=== PATIENT | female | born 1940 | race Caucasian/White ===

== ENCOUNTER 2016-11-20 11:00 | Inpatient (IN) | payer MEDICARE ==
[~2016-11-20] VITALS: Ht 167.6 cm; Wt 108.6 kg
--- NOTE | ~2016-11-20 | OR ---
PATIENT'S NAME: [facility] AGE: 76 Y [address] ROOM: [place] [address] LOCATION: [facility] ADMIT DATE: 12/05/2016 OR/Procedure Report DISCHARGE DATE: FAMILY PHYSICIAN: MAU LUCERO MD ATTENDING PHYSICIAN: BEN CALLAHAN SURGEON: Ben Callahan MD VP & GENERAL COUNSEL: 1. JENNIFER Murphy. 2. Alireza Calloway CST/FOREST [employer] EQUIPMENT OPERATOR. DATE OF PROCEDURE: 12/05/2016 PRE-OP DIAGNOSIS: Primary osteoarthritis, right hip. POST-OP DIAGNOSIS: Primary osteoarthritis, right hip. OPERATION: Right total hip arthroplasty. ANESTHESIA: General endotracheal anesthesia plus subcutaneous and periarticular local anesthesia (ropivacaine with epinephrine). ESTIMATED BLOOD LOSS: Approximately 275 cubic centimeters. DRAIN: None. SPECIMEN: None. COMPLICATIONS: None. IMPLANTS: 1. Gary Trident Tritanium size 58 mm hemispherical uncemented acetabular shell with one dome hole cover and no screws. 2. Gary X3 neutral acetabular polyethylene liner with 36 mm inner diameter. 3. Gary Accolade II size 5 standard offset uncemented femoral component. 4. 36 mm diameter metallic femoral head with -5 mm neck length. INDICATION FOR SURGERY: The patient is a 76-year-old female who presents with advanced right hip primary osteoarthritis and associated severely compromised activities of daily living. The patient has decided to proceed with hip replacement after having been thoroughly counseled regarding the associated risks, benefits, and limitations. We have specifically reviewed the risks and implications of infection, deep venous thrombosis, pulmonary embolism, mortality, neurovascular complications, blood transfusion (and associated potential for disease transmission or transfusion reaction), stiffness, instability, leg length discrepancy, mechanical deterioration of the components (due to wear and to loosening), and the potential need for PATIENT'S NAME: [facility] AGE: 76 Y [address] ROOM: [address] [address] LOCATION: [facility] ADMIT DATE: 12/05/2016 OR/Procedure Report DISCHARGE DATE: FAMILY PHYSICIAN: MAU LUCERO MD ATTENDING PHYSICIAN: BEN CALLAHAN revision. DESCRIPTION OF PROCEDURE: The patient was positioned in a lateral decubitus position with the right side up after administration of anesthesia and prophylactic antibiotics. An axillary roll was placed and the non-operative leg was well padded. The pelvis was locked perpendicularly to the floor on a pegboard. The right hip and entire operative extremity were prepped and draped with vigilant sterile technique. The patient's name as well as the intended operative side and procedure were confirmed with a verbal time-out involving myself, the circulating nurse, the scrub nurse, and the anesthesiologist. The right hip was approached through a standard posterolateral incision. The fascia que and the gluteus lilliana fascia were sharply divided in line with the overlying skin incision. The sciatic nerve was identified and was vigilantly protected throughout the entire case. The short external rotators and posterior capsule were divided from their respective femoral insertions and tagged with four #1 Ethibond sutures for later repair. The hip was posteriorly dislocated with combined flexion, adduction, and internal rotation. The femoral neck osteotomy was performed with an oscillating saw. Inspection of the femoral head demonstrated global full- thickness loss of articular cartilage. There was severe erosion of the femoral head yielding a mushroom shape appearance of the femoral head. Circumferential acetabular exposure was obtained. Examination of the acetabulum demonstrated global full-thickness loss of articular cartilage. There was severe erosion of the superolateral aspect of the acetabulum with loss of approximately 1 to 2 cm of subchondral bone superolaterally. There was a moderate-sized medial acetabular osteophyte. There were no loose bodies. Remnants of the acetabular labrum were sharply thoroughly excised. The acetabulum was sequentially progressively reamed up to 57 mm with hemispherical power reamers. The final acetabular shell was impacted into position in 20 degrees of anteversion and 45 degrees of inclination. An excellent press-fit was obtained. No supplemental dome screw fixation was necessary. A neutral trial liner was inserted. Attention was next focused upon femoral preparation. The femoral canal initiator was utilized. No reaming was performed (except for with a canal finder). The patient was noted to be moderately severely osteopenic. The femoral canal was subsequently sequentially progressively broached up to a size 5. The size 5 broach obtained excellent axial and rotational stability. Trial reductions with the above specified construct yielded acceptable stability and acceptable reproduction of leg length and offset. All trial PATIENT'S NAME: [facility] AGE: 76 Y [address] ROOM: [id number] [place], [place] [address] LOCATION: [facility] ADMIT DATE: 12/05/2016 OR/Procedure Report DISCHARGE DATE: FAMILY PHYSICIAN: MAU LUCERO MD ATTENDING PHYSICIAN: BEN CALLAHAN components were removed. The final acetabular liner was inserted with excellent circumferential visualization of its locking mechanism to assure adequate deployment. The final femoral component was impacted into position. The femoral component achieved excellent axial and rotational stability. The trunnion of the femoral component was vigilantly protected prior to placement of the femoral head. The trunnion of the femoral component was thoroughly cleaned and dried prior to placement of the femoral head. The incision was thoroughly irrigated with bacteriostatic pulsatile saline lavage multiple times throughout the case. The entire joint space was thoroughly inspected and thoroughly irrigated to assure that there was no residual debris of any sort. A final reduction was then performed. After final reduction, the hip could be firmly externally rotated in full extension and zero degrees of abduction without anterior subluxation. In neutral rotation and zero degrees of abduction, the hip could be firmly flexed to 120 degrees without instability. At 90 degrees of flexion and zero degrees abduction, the hip could be internally rotated to 65 degrees before there was any hint of posterior subluxation. The posterior capsule and short external rotators were repaired through two drill holes in the posterior aspect of the greater trochanter. The fascia que and gluteus lilliana fascia were closed with multiple simple and [id number] interrupted # 1 Ethibond and #1 Vicryl sutures. Subcutaneous tissues were thoroughly re-irrigated with bacteriostatic pulsatile saline lavage. Subcutaneous tissues were re-approximated with simple buried interrupted #0 Vicryl sutures. The skin was closed with superficial buried interrupted 2-0 Vicryl sutures followed by a running subcuticular 3-0 Monocryl suture, followed by Octylseal, followed by Steri- Strips with benzoin, followed by an occlusive Mepilex dressing. There were no intra-operative complications. It should be noted that the physician's publisher assistant played an active, integral role throughout this entire operation. By providing expert retraction, they greatly facilitated and expedited safe and effective exposure of the proximal femur and acetabulum for preparation and implantation of the components. They were also actively involved in the patient's positioning, prepping and draping, as well as wound closure. PATIENT'S NAME: [facility] AGE: 76 Y [address] ROOM: [address] [address] LOCATION: [facility] ADMIT DATE: 12/05/2016 OR/Procedure Report DISCHARGE DATE: FAMILY PHYSICIAN: MAU LUCERO MD ATTENDING PHYSICIAN: BEN CALLAHAN MD ESTEFANY SOLOMON/meg /[id number] d: 12/05/162016 t: 12/09/16 1209, OPERATIVE SUMMARY
--- NOTE | ~2016-11-20 | DS ---
PATIENT'S NAME: [facility] AGE: 76 Y [address] ROOM: [place] [address] LOCATION: [facility] ADMIT DATE: 12/05/2016 Discharge Summary DISCHARGE DATE: 12/08/2016 FAMILY PHYSICIAN: Mckenzie Cesar MD ATTENDING PHYSICIAN: Ben Callahan PRIMARY DIAGNOSIS: Osteoarthritis, right hip. SECONDARY DIAGNOSES: 1. Diastolic congestive heart failure. 2. Coronary artery disease. 3. Hypertension. 4. Chronic kidney disease. 5. Tobacco abuse, 25 pack per years. 6. Obesity, body mass index of 40. PROCEDURE PERFORMED: Right total hip arthroplasty. HISTORY: The patient is a 76-year-old female who presents with advanced right hip degenerative joint disease and associated severely compromised activities of daily living. The patient has decided to proceed with total right hip arthroplasty after having been thoroughly counseled regarding the risks, benefits, limitations, and alternatives. Please refer to the outpatient clinic notes and admission history and physical for this patient. HOSPITAL COURSE: The patient underwent a total right hip arthroplasty on 12/05/2016 without complications. General endotracheal anesthesia plus subcutaneous and periarticular local anesthesia was utilized. The patient received 24 hours of perioperative prophylactic antibiotics and remained hemodynamically stable, neurovascularly intact throughout the entire hospital course. The postoperative prophylactic deep venous thrombosis prophylaxis consisted of Xarelto 10 mg, early mobilization, and pneumatic compression devices. Daily physical therapy for gait training, transfer training, and reinforcement of hip dislocation precautions were received. The patient progressed well in physical therapy. On the date of discharge, 12/08/2016, the incision at the hip was healing well and showed no signs of infection. DISPOSITION: Home. DISCHARGE ACTIVITY: The patient is to bear weight as tolerated with strict hip dislocation precautions as instructed. There are to be no dressing changes. Dr. Callahan is to be notified immediately if there is any increased pain, fevers, chills, erythema, or drainage. DISCHARGE MEDICATIONS: Include: PATIENT'S NAME: [facility] AGE: 76 Y [address] ROOM: [address] [address] LOCATION: N ADMIT DATE: 12/05/2016 Discharge Summary DISCHARGE DATE: 12/08/2016 FAMILY PHYSICIAN: Mckenzie Cesar MD ATTENDING PHYSICIAN: Ben Callahan 1. Xarelto 10 mg take 1 tab p.o. daily for DVT prevention. 2. Valium 5 mg take 1/2 tablet to 1 tablet every 6 hours as needed for muscle spasms. 3. Oxycodone 5 mg take 1 to 2 tablets p.o. every 4 hours any for pain. FOLLOWUP: Follow up date is scheduled for December 12, 2016 for initial postoperative evaluation. JENNIFER GUARDADO FOR BEN CALLAHAN MD TLB/modl /[id number] d: 12/16/16 0022 t: 12/16/16 1306, DISCHARGE SUMMARY
[~2016-11-20 11:00] MED LIST: BYSTOLIC10 MG PO; CYTOMEL5 MCG PO; IMDUR30 MG PO; LEVOTHROID(SY175 MCG PO; MYRBETRIQ50 MG PO; PAIN RELIEVER500 MG PO; PRINIVIL (ZESTR20 MG PO; ZAROXOLYN2.5 MG PO
[2016-12-05] MEDS ORDERED: BACTRIM DS1 TAB PO (06:54)
[2016-12-07] MEDS ORDERED: COLACE100 MG PO (17:52)
[2016-12-07] MEDS ORDERED: TYLENOL EXTRA500 MG PO (17:52)
[2016-12-07] MEDS ORDERED: NEURONTIN300 MG PO (17:53)
[2016-12-07] MEDS ORDERED: XARELTO10 MG PO (17:57)
[2016-12-07] MEDS ORDERED: MIRALAX17 GM PO (17:57)
[2016-12-07] MEDS ORDERED: VALIUM5 MG PO (17:58)
[2016-12-07] MEDS ORDERED: ROXICODONE 5MG (5 MG PO (17:58)
[2016-12-07] MEDS ORDERED: PRILOSEC20 MG PO (17:59)
== END 2016-12-08 13:10 | disposition disaster alternative care site (69) | DRG 470 ==
LOC: G3N 12-05 05:06
PROVIDERS: ADMIT Orthopaedic Surgery
PROC: 0SR902A Replacement of Right Hip Joint with Metal on Polyethylene Synthetic Substitute, Uncemented, Open Approach (ICD-10-PCS; principal; 2016-12-05)
DX: M16.11 Unilateral primary osteoarthritis, right hip (principal); N18.4 Chronic kidney disease, stage 4 (severe); Z68.41 Body mass index [BMI] 40.0-44.9, adult; I13.0 Hypertensive heart and chronic kidney disease with heart failure and stage 1 through stage 4 chronic kidney disease, or unspecified chronic kidney disease; I50.32 Chronic diastolic (congestive) heart failure; N39.0 Urinary tract infection, site not specified; I25.10 Atherosclerotic heart disease of native coronary artery without angina pectoris; F17.210 Nicotine dependence, cigarettes, uncomplicated; I49.3 Ventricular premature depolarization; I49.1 Atrial premature depolarization; E66.9 Obesity, unspecified
CPT/HCPCS: C1776; J0690; J1170; J1885; J2001; J2795; J3010; J7030

== ENCOUNTER → 2016-11-27 | Outpatient (CLI) | payer MEDICARE ==
[~2016-11-27] MED LIST changes: +BACTRIM DS1 TAB PO; +COLACE100 MG PO; +MIRALAX17 GM PO; +NEURONTIN300 MG PO; +PRILOSEC20 MG PO; +ROXICODONE 5MG (5 MG PO; +TYLENOL EXTRA500 MG PO; +VALIUM5 MG PO; +XARELTO10 MG PO
[2016-11-27 10:45] LABS: BILIRUBIN URINE NEGATIVE (NEGATIVE); BLOOD URINE NEGATIVE /UL (NEGATIVE); COLOR URINE YELLOW (YELLOW); GLUCOSE URINE NEGATIVE (NEGATIVE); KETONE URINE NEGATIVE (NEGATIVE); LEUKOCYTES URINE 100 /UL (NEGATIVE); NITRITE URINE NEGATIVE (NEGATIVE); PROTEIN URINE NEGATIVE (NEGATIVE); SPEC GRAVITY URINE 1.015 (1.003-1.035); TURBIDITY URINE CLEAR (CLEAR); UROBILINOGEN URINE NORMAL (NORMAL)
[2016-11-27 10:51] LABS: BACTERIA URINE FEW (NEGATIVE); EPITHELIAL URINE 0-2 #/HPF (NEGATIVE); RBC URINE NEGATIVE #/HPF (NEGATIVE)
[2016-11-27 10:52] LABS: WBC CLUMPS URINE RARE (NEGATIVE)
== END | disposition disaster alternative care site (69) ==
LOC: GNJRC 10:08
PROVIDERS: Orthopaedic Surgery
DX: Z01.812 Encounter for preprocedural laboratory examination (principal); M16.11 Unilateral primary osteoarthritis, right hip